=== PATIENT | female | born 1965 | race Caucasian/White ===

== ENCOUNTER 2024-10-01 08:40 | Day surgery (SDC) | payer OTHER ==
[~2024-10-01] VITALS: Ht 152.4 cm; Wt 90.7 kg
[~2024-10-01 08:40] MED LIST: ALBU8.5H8 IH; ASPI-556 PO; BECL8.7A5 IH; BECL8.7H NASAL; CHOL400T56 PO; GABA-1181 PO; HYDR25TA2 PO; LEVO75 PO; LORA10TA7 PO; OMEP20CA4 PO; SODIUM CHLORIDE 0.9% 1,000 ML ONE; VORT10TA PO
[2024-10-01] MEDS: SODIUM CHLORIDE 0.9% 1,000 ML IV ONE (09:54)
[2024-10-01] MEDS ORDERED: BACI28.410 TP (10:03)
[2024-10-01] MEDS ORDERED: METF-1211 PO (10:03)
[2024-10-01] MEDS ORDERED: FLUT16SP NASAL (10:03)
[2024-10-01] MEDS ORDERED: CLOT15CR29 TP (10:03)
[2024-10-01] MEDS ORDERED: LANO113C6 TP (10:03)
[2024-10-01] MEDS ORDERED: ACET-3385 PO (10:03)
[2024-10-01] MEDS ORDERED: PARO-38 PO (10:03)
[2024-10-01 10:26] LABS: GLUCOMETER DEV NAME(LOC) SDS.; GLUCOSE,POINT OF CARE 122 MG/DL (70-110)
[2024-10-01] MEDS ORDERED: LIDOCAINE/PF 2% 5 ML SYRINGE IVP ONE (12:00)
[2024-10-01] MEDS ORDERED: PROPOFOL 1% 20 ML VIAL IVP ONE (12:00)
[2024-10-01] MEDS ORDERED: OXYGEN THERAPY IH SCH (20:00)
== END 2024-10-01 12:45 | disposition home or self-care (01) ==
LOC: SURGERY 08:40
PROVIDERS: ATTEND Specialist
DX: D50.9 Iron deficiency anemia, unspecified (principal); D12.3 Benign neoplasm of transverse colon; K63.5 Polyp of colon; K62.1 Rectal polyp; K31.7 Polyp of stomach and duodenum; E11.9 Type 2 diabetes mellitus without complications; J45.909 Unspecified asthma, uncomplicated; K21.9 Gastro-esophageal reflux disease without esophagitis; Z98.890 Other specified postprocedural states; Z98.891 History of uterine scar from previous surgery; Z79.84 Long term (current) use of oral hypoglycemic drugs; Z79.899 Other long term (current) drug therapy; Z88.8 Allergy status to other drugs, medicaments and biological substances
CPT/HCPCS: 45385; 43239; 82962; 88305; 88342; J2704; J3490; J7030